=== PATIENT | male | born 1980 | race Hispanic/Latino ===

== ENCOUNTER 2019-07-23 07:58 | Emergency (ER) | payer BC ==
[2019-07-23] MEDS ORDERED: ACETAMINOPHEN 500 MG TAB PO ONE (08:23)
[2019-07-23 08:27] VITALS: TEMP 98.3
--- NOTE | 2019-07-23 08:33 | ED.PDOC ---
History of Present Illness - General Chief Complaint: Upper Extremity Injury Stated Complaint: right hand injury Time Seen by Provider: 07/23/19 08:22 - History of Present Illness Initial Comments: 38 yo M no significant PMH presents to ED at bedside c/o right hand 5th knuckle pain superficial abrasion bruising pain and deformity after angrily punching the wall in frustration and patient states 'the wall is undefeated' 1 hour prior to arrival. Denies head injury LOC is right hand dominant denies fever chills nausea vomiting diarrhea chest pain sob diaphoresis. No change in diet rest bowel or bladder. Admits FH HTN DM admits drinking socially and smoking cigars has no PMD for follow up no other c/o today. Allergies/Adverse Reactions: Allergies NO KNOWN ALLERGY Allergy (Verified 05/31/13 07:49) Home Medications: Ambulatory Orders Acetaminophen [Tylenol] 650 mg PO Q6H PRN #30 tab 07/23/19 Ibuprofen 600 mg PO Q6H PRN #20 tab 07/23/19 Review of Systems - Review of Systems Constitutional: States: see HPI EENTM: States: see HPI Respiratory: States: see HPI Cardiology: States: see HPI Gastrointestinal/Abdominal: States: see HPI Genitourinary: States: see HPI Musculoskeletal: States: see HPI Skin: States: see HPI Neurological: States: see HPI Endocrine: States: see HPI Hematologic/Lymphatic: States: see HPI All other Systems: Reviewed and Negative Family Medical History - Family History Mother Family History: No Known Physical Exam - Physical Exam General Appearance: No apparent distress Eyes, Ears, Nose, Throat Exam: normal ENT inspection Neck: full range of motion Cardiovascular/Respiratory: regular rate, rhythm Abdominal Exam: non-tender Back Exam: normal inspection Shoulder Exam: normal inspection Elbow/Forearm Exam: normal inspection Wrist Exam: normal inspection, non-tender Hand Exam: bone tenderness, deformity, ecchymosis Neuro/Tendon: normal sensation, normal motor functions Mental Status: alert, oriented x 3 Skin Exam: other - ecchymosis and deformity over right 5th metacarpal with superficial abrasion to right knuckle Progress - Progress Progress: 07/23/19 08:32 A/P-Right Hand Pain, Contusion, Abrasion, Boxer's Fracture-xr right hand wrist t ylenol tetanus if fracture ulnar gutter splint sling follow up pcp and orthopedics/hand surgery tylenol ibuprofen 07/23/19 09:51 Reporting MD: Jn Bunch Counter Cutter date: Dictation date: EXAM DESCRIPTION: Hand,Right 3 Views CLINICAL HISTORY: punched a wall COMPARISON: None Available. TECHNIQUE: AP, LATERAL, AND OBLIQUE radiographs of the right hand. FINDINGS: The visualized bones appear well mineralized. Comminuted fracture through the head neck junction of the fifth metacarpal consistent with boxer's fracture. Slight volar angulation of the distal fracture fragment. Mild soft tissue swelling along the dorsum of the hand. IMPRESSION: 1. Comminuted fracture of distal fifth metacarpal at the head neck junction consistent with boxer's fracture. Electronically signed by: Jn Bunch MD 07/23/2019 9:24 AM [facility] Reporting MD: Jn Bunhc Counter Cutter date: Dictation date: EXAM DESCRIPTION: Wrist,Right 3 Views CLINICAL HISTORY: 38 years Male, punch COMPARISON: None available. TECHNIQUE: 3 views of the right wrist. FINDINGS: The visualized bones are well-mineralized. Comminuted fractures through the head neck junction of the right fifth metacarpal consistent with a boxer's fracture. Slight volar angulation of the distal fracture fragment. No other fracture identified. Diffuse soft tissue swelling along the dorsal aspect of the hand. IMPRESSION: 1. Comminuted fracture of right fifth metacarpal at the head neck junction consistent with boxer's fracture. 2. Diffuse soft tissue swelling along the dorsum of the hand. Electronically signed by: Jn Bunch MD 07/23/2019 9:22 AM [facility] 07/23/19 09:58 On re-examination patient with only isolated hand pain no new findings hemodynamically stable will d/c follow up Orthopedics tylenol ibuprofen Departure - Departure Clinical Impression: Hand pain, right, Abrasion Boxers fracture Qualifiers: Encounter type: initial encounter Fracture type: closed Qualified Code(s): S62.339A - Displaced fracture of neck of unspecified metacarpal bone, initial encounter for closed fracture Contusion Qualifiers: Encounter type: initial encounter Contusion area: hand Laterality: right Qualified Code(s): S60.221A - Contusion of right hand, initial encounter Time of Disposition: 10:13 Disposition: Discharge to Home or Self Care Condition: Fair Departure Forms: ED Discharge - Pt. Copy, Patient Portal Self Enrollment Instructions: DI for Arm Pain Referrals: KYLER JUSTICE MD [Primary Care Provider] - 1-2 Days Prescriptions: Acetaminophen [Tylenol] 650 mg PO Q6H PRN #30 tab PRN Reason: Pain Ibuprofen 600 mg PO Q6H PRN #20 tab PRN Reason: Pain Home Medications: Ambulatory Orders Acetaminophen [Tylenol] 650 mg PO Q6H PRN #30 tab 07/23/19 Ibuprofen 600 mg PO Q6H PRN #20 tab 07/23/19
[2019-07-23] MEDS ORDERED: TETANUS,DIPHTHERIA,PERTUSSIS 1 EA SYG IM ONE (08:37)
--- NOTE | 2019-07-23 09:42 | RAD ---
EXAM DESCRIPTION: Wrist,Right 3 Views CLINICAL HISTORY: 38 years Male, punch COMPARISON: None available. TECHNIQUE: 3 views of the right wrist. FINDINGS: The visualized bones are well-mineralized. Comminuted fractures through the head neck junction of the right fifth metacarpal consistent with a boxer's fracture. Slight volar angulation of the distal fracture fragment. No other fracture identified. Diffuse soft tissue swelling along the dorsal aspect of the hand. IMPRESSION: 1. Comminuted fracture of right fifth metacarpal at the head neck junction consistent with boxer's fracture. 2. Diffuse soft tissue swelling along the dorsum of the hand. Electronically signed by: Jn Bunch MD 07/23/2019 9:22 AM [facility]
--- NOTE | 2019-07-23 09:43 | RAD ---
EXAM DESCRIPTION: Hand,Right 3 Views CLINICAL HISTORY: punched a wall COMPARISON: None Available. TECHNIQUE: AP, LATERAL, AND OBLIQUE radiographs of the right hand. FINDINGS: The visualized bones appear well mineralized. Comminuted fracture through the head neck junction of the fifth metacarpal consistent with boxer's fracture. Slight volar angulation of the distal fracture fragment. Mild soft tissue swelling along the dorsum of the hand. IMPRESSION: 1. Comminuted fracture of distal fifth metacarpal at the head neck junction consistent with boxer's fracture. Electronically signed by: Jn Bunch MD 07/23/2019 9:24 AM [facility]
[2019-07-23 11:16] VITALS: BP 128/87; O2SAT 95
== END 2019-07-23 10:20 | disposition home or self-care (01) ==
LOC: ER 07:58
DX: S62.336A Displaced fracture of neck of fifth metacarpal bone, right hand, initial encounter for closed fracture (principal); S60.511A Abrasion of right hand, initial encounter; F17.290 Nicotine dependence, other tobacco product, uncomplicated; W22.09XA Striking against other stationary object, initial encounter; Y92.9 Unspecified place or not applicable

== ENCOUNTER → 2019-08-06 | Outpatient (CLI) | payer BC ==
--- NOTE | 2019-08-06 13:58 | RAD ---
EXAM DESCRIPTION: Hand,Right 3 Views CLINICAL HISTORY: FRACTURE OF FIFTH METACARPAL BONE - RIGHT HAND COMPARISON: Radiographs dated 07/23/2019. TECHNIQUE: AP, LATERAL, AND OBLIQUE FINDINGS: The visualized bones appear well mineralized. Comminuted fracture of the neck of the fifth metacarpal is again noted with no significant interval healing. The soft tissues appear grossly unremarkable. IMPRESSION: Comminuted fracture of the neck of the fifth metacarpal is again noted with no significant interval healing. Electronically signed by: Anaid Cook MD 08/06/2019 1:56 PM [facility]
== END ==
LOC: RAD 07:46
PROVIDERS: ATTEND Orthopaedic Surgery
DX: S62.306D Unspecified fracture of fifth metacarpal bone, right hand, subsequent encounter for fracture with routine healing (principal)

== ENCOUNTER → 2019-08-28 | Outpatient (CLI) | payer BC ==
--- NOTE | 2019-08-28 12:49 | RAD ---
EXAM DESCRIPTION: Hand,Right 3 Views CLINICAL HISTORY: FRACTURE OF METACARPAL BONE RIGHT COMPARISON: Radiographs the right hand dated 08/06/2019. TECHNIQUE: AP, LATERAL, AND OBLIQUE FINDINGS: The visualized bones appear well mineralized. Some interval callus formation is noted around the comminuted fracture of the neck of the fifth metacarpal. Mild soft tissue swelling is noted. IMPRESSION: Some interval callus formation is noted around the comminuted fracture of the neck of the fifth metacarpal. Electronically signed by: Anaid Cook MD 08/28/2019 12:48 PM [facility]
== END ==
LOC: RAD 07:45
PROVIDERS: ATTEND Orthopaedic Surgery
DX: S62.306D Unspecified fracture of fifth metacarpal bone, right hand, subsequent encounter for fracture with routine healing (principal)